=== PATIENT | male | born 1980 | race Caucasian/White ===

== ENCOUNTER 2019-09-12 09:58 | Emergency (ER) | payer OTHER ==
[~2019-09-12] VITALS: Ht 177.8 cm; Wt 81.7 kg
[~2019-09-12 09:58] MED LIST: Naprosyn500 MG PO; Norco 10-325 T1 EACH PO; Norco 5-325 Ta1 EACH PO
[2019-09-12] MEDS ORDERED: LORTAB 10 MG-3473 ML PO (11:17)
[2019-09-12] MEDS ORDERED: Augmentin 875-1 EACH PO (11:17)
[2019-09-12] MEDS ORDERED: Norco 5-325 Ta1 EACH PO (12:57)
== END 2019-09-12 11:57 | disposition home or self-care (01) ==
LOC: ER 09:58
DX: J02.0 Streptococcal pharyngitis (principal); F17.200 Nicotine dependence, unspecified, uncomplicated
CPT/HCPCS: 87430; 99282; J1100

== ENCOUNTER 2022-08-03 09:19 | Emergency (ER) | payer OTHER ==
[~2022-08-03] VITALS: Ht 177.8 cm; Wt 81.7 kg
[~2022-08-03 09:19] MED LIST changes: +Augmentin 875-1 EACH PO; +LORTAB 10 MG-3473 ML PO
[2022-08-03] MEDS ORDERED: Amoxicillin500 MG PO (09:40)
[2022-08-03] MEDS ORDERED: HYDR1TAB94 PO (09:40)
== END 2022-08-03 09:40 | disposition home or self-care (01) ==
LOC: ER 09:19
DX: K04.7 Periapical abscess without sinus (principal); K02.9 Dental caries, unspecified; F17.210 Nicotine dependence, cigarettes, uncomplicated
CPT/HCPCS: 99282

== ENCOUNTER 2022-10-22 11:48 | Emergency (ER) | payer OTHER ==
[~2022-10-22] VITALS: Ht 177.8 cm; Wt 79.4 kg
[~2022-10-22 11:48] MED LIST changes: +Amoxicillin500 MG PO; +HYDR1TAB94 PO
[2022-10-22 11:53] VITALS: BP 129/104
== END 2022-10-22 12:45 | disposition home or self-care (01) ==
LOC: ER 11:48
DX: K02.9 Dental caries, unspecified (principal); Z79.899 Other long term (current) drug therapy
CPT/HCPCS: 99282

== ENCOUNTER 2023-04-08 21:04 | Emergency (ER) | payer OTHER ==
[~2023-04-08] VITALS: Ht 177.8 cm; Wt 81.7 kg
[2023-04-08 22:30] VITALS: BP 139/92
== END 2023-04-08 23:20 ==
LOC: ER 21:04
DX: M54.50 Low back pain, unspecified (principal); M54.6 Pain in thoracic spine; V47.5XXA Car driver injured in collision with fixed or stationary object in traffic accident, initial encounter
CPT/HCPCS: 72070; 72100; 99284-25; A9270

== ENCOUNTER 2023-04-17 19:12 | Emergency (ER) | payer OTHER ==
[~2023-04-17] VITALS: Ht 180.3 cm; Wt 88.5 kg
[2023-04-17 19:23] VITALS: BP 128/76
[2023-04-17] MEDS ORDERED: PRED20 PO (21:21)
[2023-04-17] MEDS ORDERED: ASPERFLEX1 EACH TOP (21:21)
== END 2023-04-17 21:45 | disposition home or self-care (01) ==
LOC: ER 19:12
DX: M54.9 Dorsalgia, unspecified (principal); G89.29 Other chronic pain
CPT/HCPCS: 96372; 99283-25; A9270; J1885

== ENCOUNTER 2023-10-18 08:41 | Emergency (ER) | payer OTHER ==
[~2023-10-18] VITALS: Ht 177.8 cm; Wt 81.7 kg
[~2023-10-18 08:41] MED LIST changes: +ASPERFLEX1 EACH TOP; +PRED20 PO
[2023-10-18 09:39] VITALS: BP 173/104
[2023-10-18] MEDS ORDERED: Ibuprofen 600 MG Tab PO ONE (10:00)
== END 2023-10-18 10:05 | disposition home or self-care (01) ==
LOC: ER 08:41
DX: S63.616A Unspecified sprain of right little finger, initial encounter (principal); W23.0XXA Caught, crushed, jammed, or pinched between moving objects, initial encounter; Y93.63 Activity, rugby
CPT/HCPCS: 29130; 73140; 99283-25; A9270